=== PATIENT | male | born 1990 | race Caucasian/White ===

== ENCOUNTER 2017-04-03 18:28 | Emergency (ER) | payer BC ==
[~2017-04-03] VITALS: Ht 167.6 cm; Wt 57.0 kg
[~2017-04-03 18:28] MED LIST: DM/P295L11
[2017-04-03 18:29] VITALS: BP 134/78
== END 2017-04-03 19:27 | disposition home or self-care (01) ==
LOC: ED 19:15
DX: S39.012A Strain of muscle, fascia and tendon of lower back, initial encounter (principal); S16.1XXA Strain of muscle, fascia and tendon at neck level, initial encounter; X58.XXXA Exposure to other specified factors, initial encounter; Y93.89 Activity, other specified; Y92.89 Other specified places as the place of occurrence of the external cause; Y99.8 Other external cause status
CPT/HCPCS: 72050; 72110; 99284